=== PATIENT | female | born 1995 | race Caucasian/White ===

== ENCOUNTER 2019-07-15 17:15 | Observation (INO) | payer MEDICAID, SELFPAY ==
[2019-07-15] VITALS (10 sets, daily range): BP systolic 0–164; BP diastolic 0–97; PULSE 92–122; RESP 18; TEMP 36.7–36.8; BMI 25.0
[2019-07-15 18:07] LABS: Basophils % 0.2 %; Eosinophils # 0.1 10^3/uL (0.0-0.8); Eosinophils % 0.4 %; Hematocrit 30.2 % (37.0-47.0); Hemoglobin 9.1 g/dL (11.5-15.3); Lymphocytes # 1.4 10^3/uL (0.8-4.8); Lymphocytes % 11.3 %; Mean Corpuscular HGB Conc 30.1 g/dL (30.0-36.0); Mean Corpuscular Hemoglobin 23.2 pg (28.0-34.0); Mean Corpuscular Volume 76.8 fL (81-99); Mean Platelet Volume 11.5 fL (7.4-10.4); Monocytes # 0.6 10^3/uL (0.2-0.9); Monocytes % 4.9 %; Neutrophils # 10.2 10^3/uL (1.8-7.7); Neutrophils % 82.7 %; Nucleated Red Blood Cells % 0 %; Platelet Count 250 10^3/cmm (130-400); Red Blood Count 3.93 10^6/uL (4.1-5.3); Red Cell Distribution Width 15.9 % (12.1-15.1); White Blood Count 12.3 10^3/uL (4.0-10.0)
[2019-07-15 18:35] LABS: Alanine Aminotransferase 7 U/L (0-33); Albumin Level 3.6 g/dL (3.5-5.2); Alkaline Phosphatase 189 IU/L (35-105); Anion Gap 17.1 (5-19); Aspartate Amino Transferase 15 U/L (0-32); Blood Urea Nitrogen 8 mg/dL (6-20); Calcium 9.3 mg/Dl (8.6-10.0); Carbon Dioxide 20 mmol/L (22-29); Chloride 103 mmol/L (98-107); Globulin 3.3 g/dL (1.3-4.6); Glomerular Filtration Rate 152.9 mL/min (90-130); Glucose 108 mg/dL (74-109); Potassium 4.1 mmol/L (3.5-5.1); Sodium 136 mmol/L (136-145); Total Bilirubin 0.2 mg/dL (0.15-1.2); Total Protein 6.9 g/dL (6.6-8.7); Uric Acid 4.4 mg/dL (2.4-5.7)
[2019-07-15 18:37] LABS: Add Urine Microscopic? YES; Bilirubin Urine Neg (NEGATIVE); Blood Urine Neg (Negative); Glucose Urine UA Norm (Normal); Ketones Urine Negative (Negative); Leukocyte Esterase Urine 2+ (Negative); Nitrate Urine Negative (Negative); Protein Urine Neg (Negative); Sulfosalicylic Acid Urine Negative; Urine Appearance Clear (CLEAR); Urine Color Yellow (Yellow); Urobilinogen Urine Norm (Negative); pH Urine 8 (5-7)
[2019-07-15 18:38] LABS: Add Urine Culture? No; Bacteria Urine 1+; Mucus Urine TRACE; WBC Urine 15-25 /hpf (0-5)
[2019-07-15 18:45] LABS: Urine Creatinine 106 mg/dL (28-217); Urine Protein Random 12 mg/dL
[2019-07-15 18:47] LABS: UPRO/UCREAT Ratio 0.11 mg/mg CR
== END 2019-07-15 19:30 | disposition home or self-care (01) ==
PROVIDERS: Admitting Provider Family Medicine; PCP Family Medicine; Visit Provider Family Medicine
DX: O24.419 Gestational diabetes mellitus in pregnancy, unspecified control (principal); Z3A.00 Weeks of gestation of pregnancy not specified
CPT/HCPCS: 36415; 80053; 81003; 82570; 84156; 84550; 85025; 99211; G0378; G0379

== ENCOUNTER 2019-07-24 09:35 | Inpatient (IN) | payer MEDICAID, SELFPAY ==
[2019-07-24] VITALS (96 sets, daily range): BP systolic 0–171; BP diastolic 0–112; PULSE 66–112; RESP 16–18; TEMP 36.7–37.2; O2SAT 97–100; BMI 26.4
[2019-07-24 09:03] LABS: Blood Urine 2+ (Negative); Glucose Urine UA Norm (Normal); Ketones Urine 1+ (Negative); Nitrate Urine Negative (Negative); Protein Urine 1+ (Negative); Urine Appearance Cloudy (CLEAR); Urine Color Yellow (Yellow)
--- NOTE | 2019-07-24 09:03 | PC.NURSE ---
HAD ISSUE WITH OBIX AND LOST 10 MINUTES OF STRIP.
[2019-07-24 09:04] LABS: Bilirubin Urine Neg (NEGATIVE); Leukocyte Esterase Urine 2+ (Negative); Urobilinogen Urine Norm (Negative)
[2019-07-24 09:06] LABS: Add Urine Culture? No; Bacteria Urine 3+; Mucus Urine 1+; RBC Urine 15-25 /hpf (0-2); Squamous Epithelial Cell Urine 40-55 (0-5); WBC Urine >100 /hpf (0-5)
[2019-07-24 09:21] LABS: Urine Creatinine 176 mg/dL (28-217)
[2019-07-24 09:24] LABS: UPRO/UCREAT Ratio 0.32 mg/mg CR; Urine Protein Random 57 mg/dL
[2019-07-24] MEDS: labetalol 200 mg Tablet PO (09:56)
[2019-07-24] MEDS: dextrose 5%-lactated ringers 1,000 ML 125 ML IV ×2 (09:57→16:17)
[2019-07-24] MEDS: ampicillin 2,000 MG in sodium chloride 0.9% (plus) 50 ML 100 MG IV (09:58)
[2019-07-24] MEDS: miSOPROStol 100 mcg tablet 25 MCG VAGINAL (10:35)
[2019-07-24 10:37] LABS: Basophils % 0.3 %; Eosinophils # 0.1 10^3/uL (0.0-0.8); Eosinophils % 0.4 %; Hematocrit 30.1 % (37.0-47.0); Lymphocytes # 1.5 10^3/uL (0.8-4.8); Lymphocytes % 10.8 %; Mean Corpuscular HGB Conc 29.9 g/dL (30.0-36.0); Mean Corpuscular Hemoglobin 22.7 pg (28.0-34.0); Monocytes # 0.7 10^3/uL (0.2-0.9); Monocytes % 4.7 %; Neutrophils # 11.6 10^3/uL (1.8-7.7); Neutrophils % 83.4 %; Nucleated Red Blood Cells % 0 %; Platelet Count 240 10^3/cmm (130-400); Red Blood Count 3.96 10^6/uL (4.1-5.3); Red Cell Distribution Width 16.3 % (12.1-15.1)
[2019-07-24 10:56] LABS: Alanine Aminotransferase 7 U/L (0-33); Albumin Level 3.5 g/dL (3.5-5.2); Alkaline Phosphatase 180 IU/L (35-105); Aspartate Amino Transferase 19 U/L (0-32); Blood Urea Nitrogen 10 mg/dL (6-20); Calcium 9.4 mg/Dl (8.6-10.0); Carbon Dioxide 18 mmol/L (22-29); Chloride 100 mmol/L (98-107); Globulin 3.6 g/dL (1.3-4.6); Glomerular Filtration Rate 152.9 mL/min (90-130); Glucose 78 mg/dL (74-109); Sodium 132 mmol/L (136-145); Total Bilirubin 0.4 mg/dL (0.15-1.2); Total Protein 7.1 g/dL (6.6-8.7); Uric Acid 5.4 mg/dL (2.4-5.7)
[2019-07-24] MEDS: ampicillin 1,000 MG in sodium chloride 0.9% (plus) 50 ML 100 MG IV ×2 (14:00→18:29)
[2019-07-24] MEDS: lactated ringers 1,000 ML 999 ML IV (15:30)
--- NOTE | 2019-07-24 16:10 | P.ANES_ITS ---
Pre-Anesthetic Assessment Pre-Anesthetic Assessment: Height/Weight: Height 1.63 m Weight 70.007 kg Temp Pulse BP Pulse Ox 98.4 F 84 154/75 100 07/24/19 09:41 07/24/19 16:03 07/24/19 16:03 07/24/19 16:08 Preop Diagnosis: Labor Pain Proposed Procedure: Epidural Was Beta Radha taken within 24 hours: N/A Last Intake: 00:00 Social: Social History: No tobacco Packs per day: 3 cig Exam: Pre-Anes Outpt Exam: alert, oriented x 3, clear to auscultation bilatera lly and regular rate & rhythm Airway: Submandibular: WNL Cervical ROM: WNL MP: 2 Dentition: Full History/ROS: No significant history except as noted and No significant complaints Pulmonary: Pulmonary: None reported CV/HEM: CV/HEM: HTN : : None reported Hepatic: Hepatic: None reported GI: GI: None reported Metabolic: Metabolic: None reported Musc/skel: Musc/skel: None reported Neuropsych: Neuropsych: Depression Anesthetic Plan: ASA status: II Anesthesia: Regional (specify below) Risk of > 500 ml blood loss (7ml/kg in children): No Meds/Allergies Current Medications: Current Medications Generic Name Dose Route Start Last Admin Trade Name Freq PRN Reason Stop Dose Admin Dextrose/Lactated Ringer's 1,000 mls @ 125 m ls/hr 07/24/19 09:45 07/24/19 09:57 Dextrose 5%-Lact ated Ringers IV 125 mls/hr .Q8H BARRY Administration Ampicillin Sodium 2,000 mg/ 50 mls @ 100 mls/ hr 07/24/19 09:45 07/24/19 09:58 Sodium Chloride IV 100 mls/hr ONCE BARRY Administration Protocol Ampicillin Sodium 1,000 mg/ 50 mls @ 100 mls/ hr 07/24/19 09:45 07/24/19 14:00 Sodium Chloride IV 100 mls/hr Q4H BARRY Administration Protocol Ropivacaine 200 mg in 100 mls @ 6 mls/hr 07/24/19 14:45 07/24/19 15:30 Naropin Premix EPIDURAL 6 mls/hr .[id number] BARRY Administration Misoprostol 25 mcg 07/24/19 09:45 01/22/20 10:35 Cytotec VAGINAL 07/24/19 17:46 25 mcg Q4H BARRY Administration PFSH Anesthesia Female Reproductive History: : 3 Data Anesthesia CBC & Chem 7: 07/24/19 09:50 07/24/19 09:50 Other Labs: Laboratory Results - last 48 hr 07/24/19 07/24/19 07/24/19 08:30 08:30 09:50 WBC 14.0 H RBC 3.96 L Hgb 9.0 L Hct 30.1 L MCV 76.0 L MCH 22.7 L MCHC 29.9 L RDW 16.3 H Plt Count 240 MPV 12.0 H Neut % (Auto) 83.4 Lymph % (Auto) 10.8 [place] % (Auto) 4.7 Eos % (Auto) 0.4 Baso % (Auto) 0.3 Neut # (Auto) 11.6 H Lymph # (Auto) 1.5 [place] # (Auto) 0.7 Eos # (Auto) 0.1 Baso # (Auto) 0.0 Nucleated RBC % (auto) 0 Nucleated RBCs # 0.0 Sodium Potassium Chloride Carbon Dioxide Anion Gap BUN Creatinine GFR Calculation Glucose Uric Acid Calcium Total Bilirubin AST ALT Alkaline Phosphatase Total Protein Albumin Globulin Urine Color Yellow Urine Appearance Cloudy Urine pH 6.0 Ur Specific [place] 1.020 Urine Protein 1+ H Urine Glucose (UA) Norm Urine Ketones 1+ H Urine Occult Blood 2+ H Urine Nitrate Negative Urine Bilirubin Neg Urine Urobilinogen Norm Ur Leukocyte Esterase 2+ H Urine RBC 15-25 H Urine WBC >100 H Ur Squamous Epith Cells 40-55 H Urine Bacteria 3+ H Urine Mucus 1+ U Random Total Protein 57 Urine Creatinine 176 Protein/Creatinin Ratio 0.32 07/24/19 09:50 WBC RBC Hgb Hct MCV MCH MCHC RDW Plt Count MPV Neut % (Auto) Lymph % (Auto) [place] % (Auto) Eos % (Auto) Baso % (Auto) Neut # (Auto) Lymph # (Auto) [place] # (Auto) Eos # (Auto) Baso # (Auto) Nucleated RBC % (auto) Nucleated RBCs # Sodium 132 L Potassium 4.0 Chloride 100 Carbon Dioxide 18 L Anion Gap 18.0 BUN 10 Creatinine 0.5 GFR Calculation 152.9 H Glucose 78 Uric Acid 5.4 Calcium 9.4 Total Bilirubin 0.4 AST 19 ALT 7 Alkaline Phosphatase 180 H Total Protein 7.1 Albumin 3.5 Globulin 3.6 Urine Color Urine Appearance Urine pH Ur Specific [place] Urine Protein Urine Glucose (UA) Urine Ketones Urine Occult Blood Urine Nitrate Urine Bilirubin Urine Urobilinogen Ur Leukocyte Esterase Urine RBC Urine WBC Ur Squamous Epith Cells Urine Bacteria Urine Mucus U Random Total Protein Urine Creatinine Protein/Creatinin Ratio Cardiac Studies: No Data to Display
--- NOTE | 2019-07-24 16:12 | PC.NURSE ---
HAS EPIDRUAL AND IS COMFORTABLE.
--- NOTE | 2019-07-24 16:14 | ANES.PROC ---
Anesthesia Procedures Procedure/Date: 07/24/19 Epidural: Time Out Performed: Yes Consents Signed: Procedure Consent and NPO Consent Consent: requested by attending/covering physician, from patient, risks and benefits reviewed and patient agrees to proceed Lumbar Level: L3-L4 Epidural position: sitting Epidural procedure: sterile prep of area, 1% lidocaine to numb the area, 18 g needle, neg for paresthesia, test dose given, 1.5% xylocaine 1:200k epi, no systemic response, sterile dressing applied, L.U.D. no apparent complications and 0.2% Ropiavacaine @ mls/hr Additional Comments: Bupiv 0.25% 8cc and Fentanyl 100 mcg bolus at 1615. Ropiv started at 13cc/hour
--- NOTE | 2019-07-24 18:12 | PC.NURSE ---
PT HAS EPIDURAL AND IS COMFORTABLE.
--- NOTE | 2019-07-24 18:15 | PC.NURSE ---
1256 PT UP TO WALK FOR 1 HOUR INSTRUCTIONS GIVEN.
[2019-07-24] MEDS: oxytocin 30 UNIT/500 ML BAG 600 UNIT IV (19:59)
--- NOTE | 2019-07-24 20:25 | PM.DELIVERY ---
 Delivery Note: Date of delivery: 07/24/19 Pre-Delivery Course: The patient is a 37-week 2 para 1-0-0-1 female with an estimated gestational age of 37 weeks. The patient presented to the hospital with concerns that she was having contractions and was in active labor. As a part of our evaluation, she was noted to have elevated blood pressure. She had been placed on labetalol but had not taken her dose the morning of her admission to the hospital. She had some systolic blood pressures that were greater than 160. As result she was placed on labetalol, and some initial lab work were done. She was found to have a protein creatinine ratio of 0.3. The remainder of her preeclamptic panel was negative. Because of her gestational age, her preeclampsia, we elected to proceed with an induction. She was placed on Cytotec 25 mcg x 2. She had spontaneous rupture of membranes. An epidural was placed. Because she was GBS positive, she did receive 3 doses of antibiotics per protocol prior to delivery of the infant. Delivery: DELIVERY: The patient progressed to complete without difficulty. She delivered a male with a weight of 6 pounds 7 ounces with Apgars of 8, 9. The baby was delivered from the MIMI position. The baby's mouth and nose were suctioned at the site of the perineum. The baby was then completely delivered and placed on the mother's abdomen. The cord was then clamped and cut. There was no nuchal cord. There was no meconium. The placenta and 3 vessel cord were delivered intact shortly thereafter. The perineum and vaginal vault were carefully examined. A posterior midline second-degree tear was noted. It was repaired with 3-0 Vicryl with a running stitch in the usual fashion. Both the mother and the baby were in stable condition. A&P Assessment and plan (1) 37 weeks gestation of : Status: Acute Code(s): Z3A.37 - 37 weeks gestation of (2) Preeclampsia: Status: Acute Code(s): O14.90 - Unspecified pre-eclampsia, unspecified trimester (3) Group beta Strep positive: Status: Acute Code(s): B95.1 - Streptococcus, group B, as the cause of diseases classified elsewhere Coding Level of Care Code Acute [facility] Sewer Hand for [facility] [place] Diagnoses 37 weeks gestation of Z3A.37 Preeclampsia O14.90 Group beta Strep positive B95.1
[2019-07-24] MEDS: acyclovir 400 mg Tablet PO (21:39)
[2019-07-24] MEDS: ondansetron 2 mg/ML SDV 2 mL 4 MG IVP (22:07)
[2019-07-24] MEDS: HYDROcodone-acetaminophen 5-325 mg Tablet PO (23:58)
[2019-07-25] VITALS (8 sets, daily range): BP systolic 112–146; BP diastolic 70–95; PULSE 81–98; RESP 15–18; TEMP 36.6–36.9; O2SAT 98–100
[2019-07-25] MEDS: benzocaine-menthol 78 gm Canister 1 SPRAY TOPICAL (00:02)
[2019-07-25] MEDS: HYDROcodone-acetaminophen 5-325 mg Tablet PO ×3 (05:06→15:47)
[2019-07-25 09:05] LABS: Hemoglobin 7.1 g/dL (11.5-15.3); Mean Corpuscular HGB Conc 29.6 g/dL (30.0-36.0); Mean Corpuscular Hemoglobin 22.7 pg (28.0-34.0); Mean Corpuscular Volume 76.7 fL (81-99); Mean Platelet Volume 11.3 fL (7.4-10.4); Platelet Count 210 10^3/cmm (130-400); Red Blood Count 3.13 10^6/uL (4.1-5.3); Red Cell Distribution Width 16.5 % (12.1-15.1); White Blood Count 12.2 10^3/uL (4.0-10.0)
[2019-07-25] MEDS: prenatal vitamin Capsule 1 CAP PO (09:46)
[2019-07-25] MEDS: labetalol 200 mg Tablet 100 MG PO ×2 (09:46→17:41)
[2019-07-25] MEDS: docusate sodium 100 mg Capsule PO ×2 (09:46→17:42)
[2019-07-25] MEDS: sertraline 50 mg Tablet 25 MG PO (09:50)
[2019-07-25] MEDS: acyclovir 400 mg Tablet PO (15:48)
--- NOTE | 2019-07-25 16:43 | P.DS_ITS ---
Discharge Providers MAINTENANCE TRAINER Date of Admission: 07/24/19 09:35 Date of Discharge: 07/25/19 Attending Provider at Admission: Irvin Mcclure MD Attending Provider at Discharge: Irvin Mcclure MD Primary Care Provider: Irvin Mcclure MD Diagnoses at Discharge Discharge Diagnosis (1) 37 weeks gestation of : Status: Acute (2) Preeclampsia: Status: Acute (3) Group beta Strep positive: Status: Acute Reason for Visit Reason for Visit: Reason For Visit: Triage Hospital Course Hospital Course: The patient presented to the hospital having contractions. She was evaluated and she was found to have intermittent contractions. But she was noted to have an elevated blood pressure despite being on labetalol. A protein creatinine ratio was performed and she was found to be greater than 0.3. Since she was more than 37 weeks, we elected to proceed with an induction. She was placed on Cytotec 25 mcg x 2. She is also placed on group B strep protocol due to her group B strep positive status. She had spontaneous rupture of membranes. She progressed to complete and had an unremarkable vaginal delivery. Her course was also unremarkable. She again had no signs of preeclampsia except for her elevated blood pressure. She was maintained on labetalol. She chose not to breast-feed. Her pain was well controlled. She was not placed on NSAIDs due to her preeclamptic status. But her pain was well controlled with hydrocodone. Her bleeding was minimal. Information Peripartum Data: Infant Delivery Method: Vaginal Episiotomy description: None Physical Exam Narrative: EXAM NARRATIVE: The patient is alert. She appears comfortable. Her heart has a regular rate and rhythm with no murmurs appreciated. Lungs are clear to auscultation bilaterally. Her fundus is firm and below the umbilicus. Urinary Catheter Management^: Kumar: Cath Placed During This Visit: no Discharge Data Data Completed and Pending: Labs from last 24 hours 07/25/19 08:40 WBC 12.2 H RBC 3.13 L Hgb 7.1 L Hct 24.0 L MCV 76.7 L MCH 22.7 L MCHC 29.6 L RDW 16.5 H Plt Count 210 MPV 11.3 H Vitals: Last Vital Signs Temp 98.0 F 07/25/19 11:10 Pulse 86 07/25/19 11:10 Resp 16 07/25/19 11:10 BP 146/85 07/25/19 11:10 Pulse Ox 98 07/25/19 11:10 Discharge Plan Discharge Patient Disposition: Home, Self-Care Condition: Stable Prescriptions: New hydrocodone-acetaminophen 5-325 mg Tablet 1 - 2 tab PO Q6H PRN (Reason: Moderate To Severe Pain) Qty: 20 RF: 0 acyclovir 400 mg Tablet 400 mg PO TID 5 Days Qty: 15 RF: 0 Continued Vitamin RF: 0 ferrous sulfate 325 mg (65 mg iron) tablet PO DAILY RF: 0 sertraline 25 mg tablet RF: 0 28 mg iron- 800 mcg Tablet 1 tab PO DAILY RF: 0 labetalol 100 mg Tablet 100 mg PO BID RF: 0 Discharge Orders: Discharge Order (Routine); Ordered 07/25/19 Ordered By: Irvin Mcclure Referrals: Irvin Mcclure MD [Primary Care Provider] - 4-7 days (Also set appt for 6 weeks.) Discharge Diet: Regular Discharge Activity: Limit activity as instructed Discharge Attestations MAINTENANCE TRAINER Time Spent in Discharge Care*: less than 30 min Coding Level of Care Code Acute [employer] Scientist for [facility] Diagnoses 37 weeks gestation of Z3A.37 Preeclampsia O14.90 Group beta Strep positive B95.1
== END 2019-07-25 21:15 | disposition home or self-care (01) | DRG 807 ==
LOC: OBGYN 11:11 → OPOB 17:24
PROVIDERS: Admitting Provider Family Medicine; PCP Family Medicine; Visit Provider Family Medicine
DX: O14.94 Unspecified pre-eclampsia, complicating childbirth (principal); Z37.0 Single live birth; O99.824 Streptococcus B carrier state complicating childbirth; O70.1 Second degree perineal laceration during delivery; Z3A.37 37 weeks gestation of pregnancy
CPT/HCPCS: 12345; 36415; 51702; 59409; 80053; 81001; 82570; 84156; 84550; 85025; 85027; 96375; 99211; J0290; J2405; J2795; J3010; J3490; J8499

== ENCOUNTER 2023-01-11 15:18 | Emergency (ER) | payer MEDICAID, SELFPAY ==
[2023-01-11 15:36] VITALS: BMI 20.9
[2023-01-11 15:39] VITALS: BP 168/132; PULSE 84; RESP 18; TEMP 36.6; O2SAT 99
--- NOTE | 2023-01-11 18:06 | ED_ITS ---
HPI - General Adult General: Chief complaint: General Medical Stated complaint: Head pain, BP high Time Seen by Provider: 01/11/23 18:05 History of Present Illness: 27-year-old female comes in today with elevated blood pressure and headache. Patient endorses waking this morning around 1:00 with headache. Patient has used some acetaminophen this morning for her headache with minimal relief, and then took some Excedrin this afternoon with improved headache relief. Patient had gone to urgent care who referred her to the ER for further evaluation and treatment due to her headache and elevated blood pressure. Patient reports no chronic medical history. Patient did have high blood pressure during 2 to 3 years ago. Associated symptoms: Reports nausea; Deny chest pain, dyspnea or rash Review of Systems General: Reports: 10 or more systems reviewed and unremarkable except in HPI and below Const: Denies: fever(s) Eyes: Denies: change in vision ENMT: Denies: throat pain Card: Denies: chest pain Resp: Denies: dyspnea GI: Reports: nausea : Denies: difficulty voiding Musc: Denies: neck pain or back pain Skin/Breast: Denies: rash PFSH ED 2 PFSH: Social History Smoking and tobacco status: current every day smoker Female Reproductive History: Date of last menstrual period: 01/08/23 Physical Exam Const: COMMON NORMALS: alert HENMT: COMMON NORMALS: normocephalic HEAD & SCALP: normocephalic Neck/C-Spine: COMMON NORMALS: full ROM and no meningeal signs Lymph: LYMPHATIC: no lymphadenopathy noted Resp: COMMON NORMALS: normal respiratory effort and clear to auscultation bilaterally AUSCULTATION: clear to auscultation bilaterally Cardio: COMMON NORMALS: regular rate and regular rhythm RATE: regular rate RHYTHM: regular rhythm GI: COMMON NORMALS: non-tender Back/Pelvis: COMMON NORMALS: thoracic and lumbar spine normal to inspection Extremity: COMMON NORMALS: full ROM Neuro: SENSORIUM/ORIENTATION: Yes alert MENINGEAL SIGNS: Yes no meningeal signs Skin: COMMON NORMALS: turgor normal GENERAL SKIN EXAM: turgor normal Course Vital Signs: Vital signs: Vital Signs Temperature 97.9 F 01/11/23 15:39 Pulse Rate 76 01/11/23 19:29 Respiratory Rate 16 01/11/23 19:29 Blood Pressure 123/90 01/11/23 19:29 Pulse Oximetry 100 01/11/23 19:29 Oxygen Delivery Me thod Room Air 01/11/23 15:39 MDM - General Adult Medical Decision Making 27-year-old female comes in today for complaints of headache starting about 1:00 this morning. Patient had tried some acetaminophen and then Excedrin in the afternoon. Patient had gone to urgent care at that time it was noted that her blood pressure was elevated and she was referred to the ER for possible hypertensive emergency. On exam patient has no focal neural deficits. Patient appears nontoxic. Blood pressure is elevated at 168/132. Heart tones are normal. Lungs are clear to auscultation. No edema is noted in the extremities. Differential diagnosis includes not limited to hypertensive emergency, migraine headache, tension headache. Laboratory values were unremarkable. CT of the head showed no acute intracranial processes. Patient was treated with metoclopramide and diphenhydramine along with 0.1 mg of clonidine. Patient had good reduction in pain from headache and improvement in blood pressure. Recommend return to the ER for worsening symptoms. Patient was stable and felt comfortable to go home. Discussed the importance of follow-up regarding her blood pressure for recheck. Patient reported understanding. Lab Data 01/11/23 18:17 01/11/23 18:[address] 01/11/23 18:06 IMPRESSION: 1. No CT evidence of acute intracranial pathology. 2. Additional findings, as above. Laboratory Results WBC 8.0 10^3/uL (4.0-10.0) 01/11/23 18:17 RBC 4.84 10^6/uL (4.1-5.3) 01/11/23 18:17 Hgb 12.7 g/dL (11.5-15.3) 01/11/23 18:17 Hct 40.5 % (37.0-47.0) 01/11/23 18:17 MCV 83.7 fl (81-99) 01/11/23 18:17 MCH 26.2 pg (28.0-34.0) L 01/11/23 18:17 MCHC 31.4 g/dL (30.0-36.0) 01/11/23 18:17 RDW 14.5 % (12.1-15.1) 01/11/23 18:17 Plt Count 263 10^3/cmm (130-400) 01/11/23 18:17 MPV 11.8 fL (7.4-10.4) H 01/11/23 18:17 Neut % (Auto) 72.0 % 01/11/23 18:17 Lymph % (Auto) 21.0 % 01/11/23 18:17 [place] % (Auto) 5.6 % 01/11/23 18:17 Eos % (Auto) 0.3 % 01/11/23 18:17 Baso % (Auto) 0.8 % 01/11/23 18:17 Neut # (Auto) 5.75 10^3/uL (1.8-7.7) 01/11/23 18:17 Lymph # (Auto) 1.7 10^3/uL (0.8-4.8) 01/11/23 18:17 [place] # (Auto) 0.5 10^3/uL (0.2-0.9) 01/11/23 18:17 Eos # (Auto) 0.0 10^3/uL (0.0-0.8) 01/11/23 18:17 Baso # (Auto) 0.1 10^3/uL (0.0-0.1) 01/11/23 18:17 Nucleated RBC % (auto) 0 % 01/11/23 18:17 Nucleated RBCs # 0.0 /100WBC 01/11/23 18:17 Sodium 138 mmol/L (136-145) 01/11/23 18:17 Potassium 4.1 mmol/L (3.5-5.1) 01/11/23 18:17 Chloride 102 mmol/L (98-107) 01/11/23 18:17 Carbon Dioxide 21 mmol/L (22-29) L 01/11/23 18:17 Anion Gap 19.1 (5-19) H 01/11/23 18:17 BUN 7 mg/dL (6-20) 01/11/23 18:17 Creatinine 0.7 mg/dL (0.5-0.9) 01/11/23 18:17 GFR Calculation 100.4 mL/min (90-130) 01/11/23 18:17 Glucose 89 mg/dL (65-115) 01/11/23 18:17 Calculated Osmolality 283 mOsm/kg (285-295) L 01/11/23 18:17 Calcium 9.1 mg/dL (8.5-10.5) 01/11/23 18:17 Total Bilirubin 0.5 mg/dL (0.15-1.2) 01/11/23 18:17 AST 15 U/L (0-32) 01/11/23 18:17 ALT 11 U/L (0-33) 01/11/23 18:17 Alkaline Phosphatase 58 U/L (35-105) 01/11/23 18:17 NT-Pro-B Natriuret Pep 36 pg/mL (0-125) 01/11/23 18:17 Total Protein 7.6 g/dL (6.6-8.7) 01/11/23 18:17 Albumin 4.7 g/dL (3.5-5.2) 01/11/23 18:17 Globulin 2.9 g/dL (1.3-4.6) 01/11/23 18:17 HCG, Qual Negative (Negative) 01/11/23 18:17 Discharge Plan Discharge Patient Disposition: Home Clinical Impression: Elevated blood pressure reading Headache Qualifiers: Headache type: unspecified Headache chronicity pattern: acute headache Intractability: not intractable Qualified Code(s): R51.9 - Headache, unspecified Condition: Stable Discharge Orders: Discharge ED (Routine); Ordered 01/11/23 Ordered By: Issac Mcghee Discharge Diet: Usual diet Discharge Activity: Increase activity as tolerated Patient Instructions: How to Take a Blood Pressure Reading (ED), Acute Headache (ED) Activity Restrictions/Additional Instructions: Healthy diet and activity. Drink plenty of water and fluids. Follow-up with primary care for recheck of blood pressure within 1 week. Return to emergency department for new concerns or worsening symptoms. Coding Level of Care Code ED Center Human Resources Manager for [facility]erm[facility] Ir[facility]
--- NOTE | 2023-01-11 18:06 | CTR_ITS ---
PROCEDURE INFORMATION: Exam: CT Head Without Contrast Exam date and time: 01/11/2023 6:53 PM Age: 27 years old Clinical indication: Pain; Headache; Migraine; Aura effect not specified; Other: Unspecified TECHNIQUE: Imaging protocol: Computed tomography of the head without contrast. Axial, coronal and sagittal reformatted images were created and reviewed. Radiation optimization: All CT scans at this facility use at least one of these dose optimization techniques: automated exposure control; mA and/or kV adjustment per patient size (includes targeted exams where dose is matched to clinical indication); or iterative reconstruction. REPORTING DATA: Count of CT and Cardiac NM exams in prior 12 months: This patient has received 0 known CTs and 0 known cardiac nuclear medicine studies in the 12 months prior to the current study. COMPARISON: No relevant prior studies available. RADIATION DOSE METRICS: Total DLP (mGy-cm): 999.83 FINDINGS: Brain: No CT evidence of acute intracranial hemorrhage or acute territorial infarction. No significant mass effect or midline shift. Basal cisterns patent. Cerebral ventricles: Normal in size and configuration. Paranasal sinuses: Minimal left ethmoid mucosal thickening. Right sphenoid sinus polyp versus mucous retention cyst. No air-fluid levels. Mastoid air cells: Grossly unremarkable. Bones/joints: No acute osseous abnormality. Soft tissues: Grossly unremarkable. CT/CT head wo con* [id number] IMPRESSION: 1. No CT evidence of acute intracranial pathology. 2. Additional findings, as above.
[2023-01-11 18:08] VITALS: BP 177/120; PULSE 72; RESP 16; O2SAT 97
[2023-01-11 18:29] LABS: Basophils # 0.1 10^3/uL (0.0-0.1); Basophils % 0.8 %; Eosinophils % 0.3 %; Hematocrit 40.5 % (37.0-47.0); Hemoglobin 12.7 g/dL (11.5-15.3); Lymphocytes # 1.7 10^3/uL (0.8-4.8); Mean Corpuscular HGB Conc 31.4 g/dL (30.0-36.0); Mean Corpuscular Hemoglobin 26.2 pg (28.0-34.0); Mean Corpuscular Volume 83.7 fl (81-99); Mean Platelet Volume 11.8 fL (7.4-10.4); Monocytes # 0.5 10^3/uL (0.2-0.9); Monocytes % 5.6 %; Neutrophils # 5.75 10^3/uL (1.8-7.7); Nucleated Red Blood Cells % 0 %; Platelet Count 263 10^3/cmm (130-400); Red Blood Count 4.84 10^6/uL (4.1-5.3); Red Cell Distribution Width 14.5 % (12.1-15.1)
[2023-01-11] MEDS: cloNIDine 0.1 mg Tablet PO (18:45)
[2023-01-11 18:46] LABS: HCG, Serum Qual Negative (Negative)
[2023-01-11] MEDS: diphenhydrAMINE 50 mg/mL SDV 1mL 12.5 MG IVP (18:46)
[2023-01-11] MEDS: metoclopramide 5 mg/mL SDV 2 mL 10 MG IVP (18:46)
[2023-01-11 18:54] LABS: Alanine Aminotransferase 11 U/L (0-33); Albumin Level 4.7 g/dL (3.5-5.2); Alkaline Phosphatase 58 U/L (35-105); Anion Gap 19.1 (5-19); Aspartate Amino Transferase 15 U/L (0-32); Blood Urea Nitrogen 7 mg/dL (6-20); Calcium 9.1 mg/dL (8.5-10.5); Carbon Dioxide 21 mmol/L (22-29); Chloride 102 mmol/L (98-107); Globulin 2.9 g/dL (1.3-4.6); Glomerular Filtration Rate 100.4 mL/min (90-130); Glucose 89 mg/dL (65-115); NT Pro B Type Natriuretic Pept 36 pg/mL (0-125); Osmolality Calculated 283 mOsm/kg (285-295); Potassium 4.1 mmol/L (3.5-5.1); Sodium 138 mmol/L (136-145); Total Bilirubin 0.5 mg/dL (0.15-1.2); Total Protein 7.6 g/dL (6.6-8.7)
[2023-01-11 19:29] VITALS: BP 123/90; PULSE 76; RESP 16; O2SAT 100
[2023-01-11 19:30] LABS: Add Urine Microscopic? NO; Charge for UA Resulting for Rev
[2023-01-11 19:37] LABS: Bilirubin Urine Neg (Negative); Blood Urine Neg (Negative); Glucose Urine UA Norm (Normal); Ketones Urine Negative (Negative); Leukocyte Esterase Urine Negative (Negative); Nitrate Urine Negative (Negative); Protein Urine Neg (Negative); Urine Appearance Clear (CLEAR); Urine Color Yellow (Yellow); Urobilinogen Urine Norm (Negative); pH Urine 7 (5-7)
[2023-01-11 19:40] VITALS: BP 123/90; PULSE 76; RESP 16; TEMP 36.6; O2SAT 100
== END 2023-01-11 19:41 | disposition home or self-care (01) ==
PROVIDERS: Emergency Provider Nurse Practitioner Family
DX: R51.9 Headache, unspecified (principal)
CPT/HCPCS: 36415; 70450; 80053; 81003; 83880; 84703; 85025; 96374; 96375; 99284; J1200; J2765

== ENCOUNTER 2023-09-13 09:28 | Emergency (ER) | payer MEDICAID, SELFPAY ==
--- NOTE | 2023-09-13 09:30 | XRR_ITS ---
PROCEDURE INFORMATION: Exam: XR Cervical Spine Exam date and time: 09/13/2023 9:40 AM Age: 27 years old Clinical indication: Injury or trauma; Other: Fall off trampoline; Blunt trauma TECHNIQUE: Imaging protocol: Radiologic exam of the cervical spine. Views: 2 or 3 views. COMPARISON: CT head wo con* [id number] 01/11/2023 6:53 PM FINDINGS: Bones/joints: Normal. No acute fracture. Normal alignment. Soft tissues: Unremarkable. XR/XR cervical spine 3V* [id number] IMPRESSION: No acute findings.
[2023-09-13 09:32] VITALS: BP 150/100; PULSE 108; RESP 18; TEMP 36.6; O2SAT 100
--- NOTE | 2023-09-13 09:45 | ED_ITS ---
HPI - Neck Pain/Injury General: Chief Complaint: Neck Pain/Injury Stated Complaint: fall, neck pain Time Seen by Provider: 09/13/23 09:29 Source: patient Mode of arrival: ambulatory History of Present Illness: 27-year-old female who presents to the mergency room with complaints of neck pain about 10 days ago she was jumping on a trampoline and was injured. She had some mild right-sided neck pain initially is progressively worsened towards severe radiating into her upper trapezius muscle. She is also had some headaches with that some pain radiating into her shoulder blades. No previous injury to the neck no new injury since the trampoline incident. No previous surgeries on her neck. She did not strike her head there is no loss consciousness MD complaint: neck pain Onset (ago): week(s) (1) Place: home Radiation: left lateral Quality: sharp Duration: constant Relieving factors: none Exacerbating factors: movement of neck Context: other (Trampoline incident) Associated symptoms: Denies dysphagia, difficulty walking, dizziness, fevers/chills, headache(s), nausea, tingling or weakness Treatments prior to arrival: acetaminophen and ibuprofen Review of Systems Const: Denies: fever(s) or chills Card: Denies: chest pain Resp: Denies: dyspnea GI: Denies: nausea or dysphagia : Denies: dysuria, urinary frequency or urinary urgency Musc: Denies: neck pain or back pain Skin/Breast: Denies: rash Neuro: Denies: headache(s), difficulty walking or dizziness [facility] ED PFSH: Social History Smoking and tobacco/nicotine status: current every day tobacco/nicotine user Female Reproductive History: Date of last menstrual period: 08/30/23 Physical Exam Const: COMMON NORMALS: no acute distress GENERAL APPEARANCE: cooperative and comfortable ORIENTATION/CONSCIOUSNESS: Yes awake, Yes oriented to person, Yes oriented to place and Yes oriented to time HENMT: COMMON NORMALS: normocephalic, atraumatic and hearing grossly normal bilaterally HEAD & SCALP: normocephalic and atraumatic Resp: COMMON NORMALS: normal respiratory effort, No retractions, No use of accessory muscles and clear to auscultation bilaterally AUSCULTATION: clear to auscultation bilaterally Cardio: COMMON NORMALS: regular rate, regular rhythm and No murmurs present (Cardio) RATE: regular rate RHYTHM: regular rhythm GI: COMMON NORMALS: Soft to palpation and No hepatosplenomegaly present AUSCULTATION: Yes normoactive bowel sounds PALPATION: Yes Soft to palpation, No Tenderness to palpation present (GI), No Guarding due to palpation present (GI) and Yes No hepatosplenomegaly present Extremity: COMMON NORMALS: normal to inspection, capillary refill normal, no clubbing, cyanosis or edema, no calf tenderness and no pedal edema Neuro: SENSORIUM/ORIENTATION: Yes oriented to person, Yes oriented to place and Yes oriented to time Skin: COMMON NORMALS: no rashes or lesions noted GENERAL SKIN EXAM: no rashes or lesions noted Course Vital Signs: Vital signs: Vital Signs Temperature 98 F 09/13/23 09:32 Pulse Rate 108 H 09/13/23 09:32 Respiratory Rate 16 09/13/23 10:42 Blood Pressure 150/100 09/13/23 09:32 Pulse Oximetry 100 09/13/23 09:32 Oxygen Delivery Me thod Room Air 09/13/23 09:32 MDM - Neck Pain/Injury Medical Decision Making X-rays of the thoracic spine cervical spine as well as flexion-extension views of the neck are all negative. Believe this is more musculoskeletal in nature she did get relief with medications given discharged home with steroid taper follow-up with primary care if not improving it can be referred as appropriate for advanced imaging or orthopedics Differential Diagnosis Likely disc disorder of cervical region, whiplash injury to neck and cervical radiculopathy Medical Records I reviewed the patient's medical records. Lab Data I reviewed the patient's lab results. Radiology Impressions Cervical Spine X-Ray 09/13/23 09:30 IMPRESSION: No acute findings. XR interpretation done by ED provider, pending radiology final review Discharge Plan Discharge Patient Disposition: Home Clinical Impression: Cervicalgia Condition: Stable Prescriptions: New tizanidine 4 mg tablet 4 mg PO Q6H PRN (Reason: muscle spasticity) Qty: 20 0RF Rx Instructions: do not exceed 3 doses per 24 hrs hydrocodone-acetaminophen 5-325 mg tablet 1 tab PO Q6H PRN (Reason: pain) Qty: 10 0RF prednisone 20 mg tablet 20 mg PO TID Qty: 15 0RF Rx Instructions: 1 p.o. 3 times daily x3 days, 1 p.o. twice daily x2 days, 1 p.o. daily x2 days diclofenac sodium 75 mg tablet,delayed release (DR/EC) 75 mg PO Q12H PRN (Reason: pain) Qty: 20 0RF Discharge Orders: Discharge ED (Routine); Ordered 09/13/23 Ordered By: Hola Mercer Patient Instructions: Opioid Safety, Pain Management Activity Restrictions/Additional Instructions: Thank you for choosing [facility] for your healthcare needs today. Please realize this is an emergency room and that we are providing you with a medical screening exam and this may not be complete and all inclusive of all the testing and or work up that you may need to determine your ailment or severity of your illness. It is very important that you follow up as instructed or that you return to the Emergency Department should you have concerns or if your condition changes or worsens in any way. You were seen today for neck pain. X-ray of the neck did not show any acute abnormalities. Discharged home on a course of oral steroids which she should begin tomorrow you can use the hydrocodone diclofenac and tizanidine as needed for discomfort. Coding Level of Care Code ED Wedding Consultant for Jermaine Irby
--- NOTE | 2023-09-13 09:50 | XRR_ITS ---
PROCEDURE INFORMATION: Exam: XR Cervical Spine Exam date and time: 09/13/2023 9:56 AM Age: 27 years old Clinical indication: Neck pain TECHNIQUE: Imaging protocol: Radiologic exam of the cervical spine. Views: 2 or 3 views. COMPARISON: CR XR cervical spine 3V* [id number] 09/13/2023 9:40 AM FINDINGS: Bones/joints: 2 mm anterolisthesis of C3 on C4 and of C4 on C5 in flexion. No other significant subluxations. Otherwise, unremarkable. Soft tissues: Unremarkable. XR/XR cervical spine fl/ex [id number] IMPRESSION: 2 mm anterolisthesis of C3 on C4 and of C4 on C5 in flexion.
[2023-09-13] MEDS: ketorolac 30 mg/mL INJ 60 MG IM (09:54)
[2023-09-13] MEDS: orphenadrine 30 mg/mL Inj 2 mL 60 MG IM (09:56)
[2023-09-13] MEDS: dexamethasone 10 mg/mL INJ IM (09:57)
--- NOTE | 2023-09-13 10:07 | XRR_ITS ---
PROCEDURE INFORMATION: Exam: XR Thoracic Spine Exam date and time: 09/13/2023 10:17 AM Age: 27 years old Clinical indication: Pain in thoracic spine TECHNIQUE: Imaging protocol: Radiologic exam of the thoracic spine. Views: 3 views. COMPARISON: CR XR cervical spine fl/ex [id number] 09/13/2023 9:56 AM FINDINGS: Bones/joints: Mild scoliosis. Otherwise, unremarkable. Soft tissues: Unremarkable. XR/XR thoracic spine 3V* [id number] IMPRESSION: Mild scoliosis. Otherwise, unremarkable.
[2023-09-13 10:42] VITALS: RESP 16
[2023-09-13] MEDS: morphine 4 mg/mL SDV 1 mL IM (10:42)
--- NOTE | 2023-09-13 10:55 | W.ED.NECK ---
HPI - Neck Pain/Injury General: Chief Complaint: Neck Pain/Injury Stated Complaint: fall, neck pain Time Seen by Provider: 09/13/23 09:29 Mode of arrival: ambulatory History of Present Illness: MD complaint: neck pain Place: home Radiation: left lateral Quality: sharp Relieving factors: none Exacerbating factors: movement of neck Context: other (Trampoline incident) PFSH ED PFSH: Social History Smoking and tobacco/nicotine status: current every day tobacco/nicotine user Female Reproductive History: Date of last menstrual period: 08/30/23 Course Vital Signs: Vital signs: Vital Signs Temperature 98 F 09/13/23 09:32 Pulse Rate 108 H 09/13/23 09:32 Respiratory Rate 16 09/13/23 10:42 Blood Pressure 150/100 09/13/23 09:32 Pulse Oximetry 100 09/13/23 09:32 Oxygen Delivery Me thod Room Air 09/13/23 09:32 MDM - Neck Pain/Injury Medical Records I reviewed the patient's medical records. Lab Data I reviewed the patient's lab results. Radiology Impressions Cervical Spine X-Ray 09/13/23 09:30 IMPRESSION: No acute findings. XR interpretation done by ED provider, pending radiology final review Discharge Plan Discharge Patient Disposition: Home Clinical Impression: Cervicalgia Condition: Stable Prescriptions: New tizanidine 4 mg tablet 4 mg PO Q6H PRN (Reason: muscle spasticity) Qty: 20 0RF Rx Instructions: do not exceed 3 doses per 24 hrs hydrocodone-acetaminophen 5-325 mg tablet 1 tab PO Q6H PRN (Reason: pain) Qty: 10 0RF prednisone 20 mg tablet 20 mg PO TID Qty: 15 0RF Rx Instructions: 1 p.o. 3 times daily x3 days, 1 p.o. twice daily x2 days, 1 p.o. daily x2 days diclofenac sodium 75 mg tablet,delayed release (DR/EC) 75 mg PO Q12H PRN (Reason: pain) Qty: 20 0RF Discharge Orders: Discharge ED (Routine); Ordered 09/13/23 Ordered By: Hola Mercer Patient Instructions: Opioid Safety, Pain Management Activity Restrictions/Additional Instructions: Thank you for choosing [facility] your healthcare needs today. Please realize this is an emergency room and that we are providing you with a medical screening exam and this may not be complete and all inclusive of all the testing and or work up that you may need to determine your ailment or severity of your illness. It is very important that you follow up as instructed or that you return to the Emergency Department should you have concerns or if your condition changes or worsens in any way. You were seen today for neck pain. X-ray of the neck did not show any acute abnormalities. Discharged home on a course of oral steroids which she should begin tomorrow you can use the hydrocodone diclofenac and tizanidine as needed for discomfort. Coding Level of Care Code ED Data Entry Machine Operator for Jermaine Irby
[2023-09-13 11:03] VITALS: BP 149/101; PULSE 75; O2SAT 98
== END 2023-09-13 11:06 | disposition home or self-care (01) ==
PROVIDERS: Emergency Provider Family Medicine
DX: M54.2 Cervicalgia (principal); Z72.0 Tobacco use
CPT/HCPCS: 72040; 72072; 96372; 99284; J1100; J1885; J2270; J2360

== ENCOUNTER 2025-02-27 10:58 | Emergency (ER) | payer MEDICAID, SELFPAY ==
[2025-02-27 11:03] VITALS: BP 153/99; PULSE 105; RESP 17; TEMP 37; O2SAT 97; BMI 19.7
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
--- OUTSIDE RECORDS SUMMARY | 2025-02-27 11:04 | XMS_ITS | Encounter Summary ---
Author Organization [facility] Address [address] [place] [address] Care Team Providers Care Incident Response Engineer Name Role Phone Tyesha Erwin Primary Care Provider Encounter Details Date Type Department Care Team (Late st Contact Info) Description 09/03/2015 Ancillary Orders [facility] Emergency Department [address] [place] [phone] Joe Matthews MD [address] [place], [place] [id number] Social History Tobacco Use Types Packs/Day Years Used Date Smoking Tobacco: Never Smokeless Tobacco: Never Alcohol Use Standard Drinks/Week Comments No 0 (1 standard drink = 0.6 oz pur e alcohol) Comments Yes Sex and Gender Information Value Date Recorded Sex Assigned at Not on file Legal Sex Female 11:08 AM ENRICHMENT SPECIALIST Gender Identity Not on file Sexual Orientation Not on file documented as of this encounter Plan of Treatment Not on file documented as of this encounter Visit Diagnoses Not on filedocumented in this encounter Care Teams Incident Response Engineer Relationship Specialty Start Date End Date Tyesha Erwin [address] [place] [address] PCP - General 10/21/17 02/26/18 documented as of this encounter
--- OUTSIDE RECORDS SUMMARY | 2025-02-27 11:04 | XMS_ITS | Clinical Summary ---
Author Organization [facility] Address [address] [place] [address] Phone Care Team Providers Care Staff Genetic Counselor Name Role Phone Unavailable Primary Care Provider Unavailabl e Allergies No known active allergies Medications sertraline (ZOLOFT) 25 mg tabletIndication s:Mild episode of recurrent major depressive disorder,Anxiety state TAKE 1 TABLET(25 MG) BY MOUTH DAILY 30 Tablet 1 10/06/2020 Active Active Problems Problem Noted Date Diagnosed Date Anemia 10/25/2017 Blepharitis of left lower eyelid 10/24/2017 Mood disorder NOS 10/23/2017 Anxiety disorder NOS 10/23/2017 Borderline personality disorder 10/23/2017 Optic neuropathy, left eye 07/19/2013 Family History Medical History Relation Name Comments Glaucoma Neg Hx Social History Tobacco Use Types Packs/Day Years Used Date Smoking Tobacco: Never Smokeless Tobacco: Never Alcohol Use Standard Drinks/Week Comments Yes 0 (1 standard drink = 0.6 oz pur e alcohol) ocassional Comments No Sex and Gender Information Value Date Recorded Sex Assigned at Not on file Legal Sex Female 11:08 AM EDGE MOLDER Gender Identity Not on file Sexual Orientation Not on file Last Filed Vital Signs Vital Sign Reading Time Taken Comments Blood Pressure 128/82 08/03/2020 4:24 PM EDGE MOLDER Pulse 113 08/03/2020 4:24 PM EDGE MOLDER Temperature 36.6 C (97.8 F) 08/03/2020 4:24 PM EDGE MOLDER Respiratory Rate 18 02/27/2018 6:25 PM CDT Oxygen Saturation 99% 08/03/2020 4:24 PM EDGE MOLDER Inhaled Oxygen Concentration - - Weight 63.5 kg (140 lb) 08/03/2020 4:24 PM EDGE MOLDER Height 170.2 cm (5' 7 ) 08/03/2020 4:24 PM EDGE MOLDER Body Mass Index 21.93 08/03/2020 4:24 PM EDGE MOLDER Plan of Treatment Health Maintenance Due Date Last Done Comments DTAP/TDAP/TD VACCINES (1 - Tdap) 09/27/2014 HEPATITIS B VACCINES (1 of 3 - 19+ 3-dose series) 09/01 CERVICAL CANCER SCREENING 09/27/2016 HPV/Cotest (21-29) 09/27/2016 PAP SMEAR 09/27/2016 HPV VACCINES (1 - 3-dose SCDM series) 09/27/2022 INFLUENZA VACCINE (#1) 2025 Insurance Member Subscriber Plan / Payer (Ef fective 2020-Present) Name:Jennifer Escamilla Relation to Subscriber:Self Name:Jennifer Escamilla Payer ID:[id number] (NAIC) Group ID:[id number] Type:Medicaid Managed Care Address: [place] [id number] [facility] Advance Directives For more information, please contact: [phone] * Full Code (Latest Code Status on File) Date Activated Date Inactivated Comments 10/22/2017 6:31 PM 10/25/2017 10:17 PM
--- OUTSIDE RECORDS SUMMARY | 2025-02-27 11:04 | XMS_ITS | Encounter Summary ---
Author Organization [facility] Address [address] [place] [address] Care Team Providers Care Game And Fish Protector Name Role Phone Per En[facility] Primary Care Provider Encounter Details Date Type Department Care Team (Late st Contact Info) Description 09/03/2015 Ancillary Orders [facility] Ultrasound [address] [place] [phone] Joe Matthews MD [address] [place] [address] Social History Tobacco Use Types Packs/Day Years Used Date Smoking Tobacco: Never Smokeless Tobacco: Never Alcohol Use Standard Drinks/Week Comments No 0 (1 standard drink = 0.6 oz pur e alcohol) Comments Yes Sex and Gender Information Value Date Recorded Sex Assigned at Not on file Legal Sex Female 11:08 AM MAXILLOFACIAL PROSTHETICS DENTIST Gender Identity Not on file Sexual Orientation Not on file documented as of this encounter Plan of Treatment Not on file documented as of this encounter Visit Diagnoses Not on filedocumented in this encounter Care Teams Game And Fish Protector Relationship Specialty Start Date End Date Per Ennis [facility] [address] [place] [address] PCP - General 10/21/17 02/26/18 documented as of this encounter
--- OUTSIDE RECORDS SUMMARY | 2025-02-27 11:04 | XMS_ITS | Encounter Summary ---
Author Organization [facility] Address [address] [place] [address] Care Team Providers Care Carousel Attendant Name Role Phone Per Ennis [facility] Primary Care Provider [phone] Encounter Details Date Type Department Care Team (Late st Contact Info) Description 09/03/2015 Ancillary Orders [facility] Ultrasound [address] [place] [phone] Joe Matthews MD [address] [place] [address] Social History Tobacco Use Types Packs/Day Years Used Date Smoking Tobacco: Never Smokeless Tobacco: Never Alcohol Use Standard Drinks/Week Comments No 0 (1 standard drink = 0.6 oz pur e alcohol) Comments Yes Sex and Gender Information Value Date Recorded Sex Assigned at Not on file Legal Sex Female 11:08 AM UPSCALE SECURITY OFFICER Gender Identity Not on file Sexual Orientation Not on file documented as of this encounter Plan of Treatment Not on file documented as of this encounter Visit Diagnoses Not on filedocumented in this encounter Care Teams Carousel Attendant Relationship Specialty Start Date End Date Per Ennis [facility] [address] [place] [address] PCP - General 10/21/17 02/26/18 documented as of this encounter
--- OUTSIDE RECORDS SUMMARY | 2025-02-27 11:04 | XMS_ITS | Clinical Summary ---
Author Organization [facility] Address [address] [place] [address] Phone Care Team Providers Care Retort Firer Name Role Phone KeshawnPaola bueno Primary Care Provider Allergies No known active allergies Medications No known medications Active Problems Problem Noted Date Diagnosed Date Elevated BP without diagnosis of hypertension Dehydration, mild 08/12/2024 Hypokalemia due to excessive gastrointestinal loss of potassium 08/12/2024 Anemia 10/25/2017 Blepharitis of left lower eyelid 10/24/2017 Mood disorder NOS 10/23/2017 Anxiety disorder NOS 10/23/2017 Borderline personality disorder 10/23/2017 Optic neuropathy, left eye 07/19/2013 Encounters Date Type Department Care Team Description 02/05/2025 External Device Data [facility] ABSTRACTION Provider, Abstract 01/28/2025 External Device Data [facility] ABSTRACTION Provider, Abstract 12/18/2024 External Device Data [facility] ABSTRACTION Provider, Abstract 12/17/2024 External Device Data [facility] ABSTRACTION Provider, Abstract 12/17/2024 External Device Data [facility] ABSTRACTION Provider, Abstract from Last 3 Months Family History Medical History Relation Name Comments Glaucoma Neg Hx Social History Tobacco Use Types Packs/Day Years Used Date Smoking Tobacco: Never Smokeless Tobacco: Never Alcohol Use Standard Drinks/Week Comments Yes 0 (1 standard drink = 0.6 oz pur e alcohol) Feeling Safe Answer Date Recorded Are you in a relationship wi th someone who hurts you emotionally and/or physically? No 08/12/2024 Comments No Sex and Gender Information Value Date Recorded Sex Assigned at Not on file Legal Sex Female 12:33 AM TROLLEY COLLECTOR Gender Identity Not on file Sexual Orientation Not on file Last Filed Vital Signs Vital Sign Reading Time Taken Comments Blood Pressure 148/94 08/12/2024 3:00 PM TROLLEY COLLECTOR Pulse 104 08/12/2024 3:00 PM TROLLEY COLLECTOR Temperature 37.2 C (98.9 F) 08/12/2024 1:16 PM TROLLEY COLLECTOR Respiratory Rate 18 08/12/2024 3:00 PM TROLLEY COLLECTOR Oxygen Saturation 100% 08/12/2024 3:00 PM TROLLEY COLLECTOR Inhaled Oxygen Concentration - - Weight 52.3 kg (115 lb 3.2 oz) 08/12/2024 1:16 P M TROLLEY COLLECTOR Height 167.6 cm (5' 6 ) 08/12/2024 1:16 PM TROLLEY COLLECTOR Body Mass Index 18.59 08/12/2024 1:16 PM TROLLEY COLLECTOR Plan of Treatment Health Maintenance Due Date Last Done Comments DTAP/TDAP/TD VACCINES (2 - Tdap) 09/27/2014 07/25/18 97 Preventative Visit-Managed Medicaid 09/27/2014 CERVICAL CANCER SCREENING 09/27/2016 HPV/Cotest (21-29) 09/27/2016 PAP SMEAR 09/27/2016 HPV VACCINES (1 - 3-dose SCDM series) 09/27/2022 INFLUENZA VACCINE (#1) 2025 03/25/2021, 2020 HEPATITIS B VACCINES Completed 07/25/1996, 1995, 1995 Insurance [facility] [employer] [id number] Care Teams Retort Firer Relationship Specialty Start Date End Date Paola Liao DO [address] [place] [phone] PCP - General Family Practice 05/20/21
--- NOTE | 2025-02-27 11:12 | W.ED.PSYCHS ---
HPI - Psych General: Chief Complaint: Psychiatric Symptoms Stated Complaint: Anxitey Time Seen by Provider: 02/27/25 11:10 History of Present Illness: 29-year-old female with a history of depression who presents to the emergency room with worsening depression. She is extremely tearful. She says she has no support at home and is taking care of her children. Said she dropped her job about a year ago says she loves her children she has to be home for them. She says she is not currently suicidal but she has had some suicidal thoughts. When I discussed admitting her for inpatient psychiatric care she became extremely agitated and says she has no one to help with her kids and they will be dropped off this afternoon and she has to be there. She says she wants to be evaluated so we discussed going to the crisis unit and she agrees to this. Related Data Home Medications ?Medication ?Instructions ?Recorded ?Confirmed No Known Home Medications 02/27/25 02/27/25 Allergies Allergy/AdvReac Type Severity Reaction Status Date / Time No Known Drug Allergies Allergy Mild none Verified 09/13/23 09:48 Review of Systems Narrative: Constitutional symptoms: Negative except as documented in HPI. Skin symptoms: Negative except as documented in HPI. Eye symptoms: Negative except as documented in HPI. ENMT symptoms: Negative except as documented in HPI. Respiratory symptoms: Negative except as documented in HPI. Cardiovascular symptoms: Negative except as documented in HPI. Gastrointestinal symptoms: Negative except as documented in HPI. Genitourinary symptoms: Negative except as documented in HPI. Musculoskeletal symptoms: Negative except as documented in HPI. Neurologic symptoms: Negative except as documented in HPI. Psychiatric symptoms: Negative except as documented in HPI. Endocrine symptoms: Negative except as documented in HPI. PFSH ED PFSH: Social History Smoking and tobacco/nicotine status: current every day tobacco/nicotine user Physical Exam Narrative: EXAM NARRATIVE: General: Alert, no acute distress. Skin: Warm, dry. Head: Normocephalic, atraumatic. Neck: Supple, trachea midline. Eye: Extraocular movements are intact. Ears, nose, mouth and throat: mucosa moist. Cardiovascular: Regular, Normal peripheral perfusion. Respiratory: Lungs are clear to auscultation, respirations are non-labored, breath sounds are equal, Symmetrical chest wall expansion. Gastrointestinal: Soft, Nontender, Non distended Musculoskeletal: Normal ROM, no deformity. Neurological: Alert and oriented, No focal neurological deficit observed. Psychiatric: Patient is extremely anxious and tearful. She denies current suicidal ideation. She says she wants to be evaluated by psychiatrist. Course Vital Signs: Vital signs: Vital Signs Temperature 98.6 F 02/27/25 11:03 Pulse Rate 105 H 02/27/25 11:03 Respiratory Rate 17 02/27/25 11:03 Blood Pressure 153/99 02/27/25 11:03 Pulse Oximetry 97 02/27/25 11:03 Oxygen Delivery Me thod Room Air 02/27/25 11:03 MDM - Psych Medical Decision Making Medical decision making: Differential diagnosis including but not limited to and based on the above HPI, review of systems and physical exam: In this patient who is extremely depressed but says she is not suicidal and refuses inpatient admission I think the best next step is to have her evaluated at the crisis center. She does not currently have any suicidal thoughts and has her children to take care of as a barrier so I feel safe having her go there. Security is escorting her to the crisis center Assessment and plan: Depression - Discharged home - Discussed plan with patient. Answered any questions. - Evaluation and treatment of this problem were appropriate in the emergency setting. No radiology studies performed this visit Discharge Plan Discharge Patient Disposition: Home Clinical Impression: Depression Condition: Stable Prescriptions: No Action No Known Home Medications Discharge Orders: Discharge ED (Routine); Ordered 02/27/25 Ordered By: Aleja Peguero Patient Instructions: Opioid Safety, Pain Management, Patient Portal & Phil Instructions Activity Restrictions/Additional Instructions: Please follow-up with the [facility] health crisis center immediately upon discharge. Phone number is [phone]. There is a 24-hour crisis hotline with the number of [phone]. Hours of operation are 8 AM to 6 PM. Thank you for choosing [facility] for your healthcare needs today. Please realize this is an emergency room and that we are providing you with a medical screening exam and this may not be complete and all inclusive of all the testing and or work up that you may need to determine your ailment or severity of your illness. You have been screened and evaluated and felt safe for discharge. Health conditions do change or evolve sometimes and as such it is important that you follow up with your Primary Doctor to be re checked, 3-5 days is a general good time frame for follow up. You are always welcome to return to the ED for re assessment if your symptoms are worsening or you have new concerns Print Language: Nauruan Coding Level of Care Code ED Transportation Department Head for Jermaine Irby
== END 2025-02-27 11:35 | disposition home or self-care (01) ==
PROVIDERS: Emergency Provider Emergency Medicine
DX: F32.A Depression, unspecified (principal); Z72.0 Tobacco use
CPT/HCPCS: 99283